=== PATIENT | male | born 1955 | race Caucasian/White ===

== ENCOUNTER 2018-10-21 17:33 | Observation (INO) ==
--- NOTE | 2018-10-21 18:06 | PROVIDER DOCUMENTATION ---
HPI-General Adult - General Chief Complaint: Edema Stated Complaint: FACE SWELLING / FEELS DIZZY Time Seen by Provider: 10/21/18 17:52 Source: patient Allergies/Adverse Reactions: Patient Allergies Allergy/AdvReac Type Severity Reaction Status Date / Time Penicillins AdvReac Unknown Verified 10/21/18 18:04 Home Medications: Home Medication List Medication Instructions Recorded Confirmed Last Taken Type Albuterol Sulfate [Proair Hfa] 8.5 gm IH PRN PRN 01/08/18 10/21/18 01/11/18 06:00 History Amlodipine Besylate/Benazepril 1 each PO DAILY 01/08/18 10/21/18 01/10/18 08:00 History [Lotrel 10/20 mg Capsule] Baclofen 10 mg PO TID 01/08/18 10/21/18 01/11/18 06:00 History Escitalopram Oxalate [Lexapro] 10 mg PO DAILY 01/08/18 10/21/18 01/11/18 06:00 History Meloxicam 15 mg PO DAILY 01/08/18 10/21/18 01/07/18 History Metformin [Glucophage] 2 tab PO BID 01/08/18 10/21/18 01/10/18 19:00 History Morphine Sulfate [Morphine Sulfate 15 mg PO TID 01/08/18 10/21/18 01/11/18 06:00 History ER] Pioglitazone HCl [Actos] 15 mg PO DAILY 01/08/18 10/21/18 01/11/18 06:00 History Ropinirole HCl [Requip] 5 mg PO DAILY 01/08/18 10/21/18 01/10/18 22:00 History Zolpidem Tartrate [Ambien] 10 mg PO QHS 01/08/18 10/21/18 01/10/18 22:00 History - History of Present Illness -Gen Adult Nature of Presenting Problems: Patient is a 63 year old white male with history of diabetes, HTN,and chronic pain (seen at local pain clinic, takes morphine three times a day) who presents for followup of lip swelling after taking CALEB inhibitor this am. Initially seen by Urgent Care Clinic and given benadryl and Steroid shot. Patient is currently oriented to person,place, and time. Denies chest pain,new weakness,fever, new numbness, headache, or sob. Family report that patient has not been acting himeself. Location of Pain/Injury: reports: other (chronic back pain) Onset/Duration: reports: gradual, this morning Timing: reports: improving Associated Symptoms: denies: chest pain, fever/chills, shortness of breath Recently seen or treated by another doctor?: Yes (pain clinic, urgent care clinic) Review of Systems - Adult - REVIEW OF SYSTEMS - ADULT Constitutional: denies: chills, fever Eyes: reports: no symptoms reported Ears, Nose, Mouth & Throat: reports: see HPI, other (lip swelling). denies: throat swelling Respiratory: denies: cough, shortness of breath Gastrointestinal: denies: abdominal pain, nausea, vomiting Musculoskeletal: reports: no symptoms reported Integumentary: reports: see HPI Neurological: denies: dizziness/vertigo Psychiatric: denies: no symptoms reported Endocrine: reports: no symptoms reported Hematologic/Lymphatic: reports: no symptoms reported Allergic/Immunologic: reports: see HPI All Other Systems: Reviewed and Negative Past History - Adult - PAST MEDICAL HISTORY-ADULT Review of Records: reports: Old Records Reviewed, Nursing Assessment Review, Medications Reviewed, Social history reviewed & non-contributory. Major Childhood Illnesses: reports: denies history Cardiovascular: reports: HTN, hyperlipidemia Respiratory: reports: denies history Gastrointestinal: reports: denies history Obstetrical/Gynecological: reports: denies history Genitourinary: reports: denies history Musculoskeletal: reports: denies history Neurological: reports: denies history Endocrine/Immune: reports: denies history Diabetes Type: Type 2 Diabetes controlled by:: PO Meds Other Conditions: reports: denies history - IMMUNIZATION STATUS Childhood Immunizations: See Nurse Assessment Flu Vaccine: See Nurse Assessment - FAMILY HISTORY Family History: reviewed, not pertinent - SOCIAL HISTORY Substance Use: denies Alcohol Use Frequency: occasionally Physical Exam-General - PHYSICAL EXAM-ADULT Initial Vital Signs Reviewed: Yes - CONSTITUTIONAL General Appearance: alert, no apparent distress, other (oriented to time,place, and person, NIH score=0) - EYES Eyes: PERRL/EOMI - HEAD, EARS, NOSE, MOUTH & THROAT HENMT: normocephalic/atraumatic, moist mucous membranes, other (mild lip swelling) - NECK Neck: non-tender, full range of motion, supple - RESPIRATORY Respiratory: lungs clear, no pleuratic chest pain - CARDIOVASCULAR Cardiovascular: regular rate, rhythm - GASTROINTESTINAL (ABDOMEN) Abdominal Exam: normal bowel sounds, non tender, soft - LYMPHATIC Lymphatic: no adenopathy - MUSCULOSKELETAL Back Exam: normal inspection, no CVA tenderness Extremity: normal range of motion, non-tender Peripheral Pulses: radial (R): 2+, radial (L): 2+ - SKIN Integumentary: normal color, normal turgor, warm/dry - NEUROLOGIC Neurologic: 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 Martinez, hospitalist Time Discussed: 19:50 Consult Disposition: Admit Departure - Departure Date of Disposition Decision: 10/21/18 Time of Disposition Decision: 19:53 DIAGNOSIS: LARS (acute kidney injury) Adverse drug reaction Qualifiers: Encounter type: initial encounter Qualified Code(s): T50.905A - Adverse effect of unspecified drugs, medicaments and biological substances, initial encounter Angioedema Qualifiers: Encounter type: initial encounter Qualified Code(s): T78.3XXA - Angioneurotic edema, initial encounter Disposition: ADMITTED INPATIENT 09 Certified Medical Emergency: Emergent Condition: Stable Referrals and Follow-Ups: Juvencio Trejo MD [Primary Care Provider] - - Critical Care Note This patient required my direct & personal management of CC.: No Attestation - Physician/ KEANU Attestation Patient care was provided by Advanced Practice Provider:: No The physician spent face to face time with patient:: Yes Advanced Practice Provider documentation review:: Supervising physician onsite and consulted in the evaluation and care of this patient. The physician did have a face to face encounter with the patient.
[2018-10-21 18:39] LABS: BASO# 0.01 X1000 (0.0-0.2); BASO% 0.1 % (0.0-0.8); HEMATOCRIT 35.6 % (42.0-52.0); HEMOGLOBIN 11.7 g/dL (14.0-18.0); IMM GRAN# 0.03 X1000 (0.0-0.04); IMM GRAN% 0.3 % (0.0-0.5); LYMPH# 0.32 X1000 (1.2-3.4); LYMPH% 2.9 % (20.5-51.1); MCHC 32.9 g/dL (33-37); MCV 97.3 FL (81-99); MONO# 0.15 X1000 (0.11-0.59); MONO% 1.4 % (1.7-9.3); MPV 10.6 FL (7.4-10.4); NEUT# 10.55 X1000 (1.4-6.5); NEUT% 95.3 % (42.2-75.2); PLT 322 X1000 (130-400); RBC 3.66 XMIL (4.7-6.1); WBC 11.06 X1000 (4.8-10.8)
[2018-10-21 19:16] LABS: BILIRUBIN URINE NEGATIVE (NEGATIVE); BLOOD URINE NEGATIVE (NEGATIVE); GLUCOSE URINE NEGATIVE (NEGATIVE); KETONE URINE TRACE mg/dL (NEGATIVE); LEUKOCYTES URINE NEGATIVE (NEGATIVE); NITRITE URINE NEGATIVE (NEGATIVE); PROTEIN URINE NEGATIVE (NEGATIVE); UROBILINOGEN URINE NORMAL
[2018-10-21 19:16] LABS: ALBUMIN 4.4 g/dL (3.5-5.0); CALCIUM 8.9 mg/dL (8.8-10.2); CREATININE 3.6 mg/dL (0.7-1.2); POTASSIUM 5.4 mmol/L (3.5-5.1); TOTAL BILIRUBIN 0.4 mg/dL (0.20-1.00); TOTAL PROTEIN 6.4 g/dL (6.3-8.3)
[2018-10-21 19:17] LABS: CLARITY CLEAR (CLEAR); COLOR YELLOW
[2018-10-21 19:19] LABS: URINE SOURCE CLEAN CATCH
[2018-10-21 19:20] LABS: URINE BACTERIA 1+ /HFP; URINE CAST NONE SEEN /LPF; URINE CRYSTAL NONE SEEN /HPF; URINE EPITHELIAL CELLS <10 /HPF (<10); URINE RBC <10 /HPF (<10); URINE WBC <10 /HPF (<10); URINE YEAST NONE SEEN /HPF
[2018-10-21 19:21] LABS: UR AMPHETAMINES QUAL NONE DETECTED (NONE DETECT); UR BARBITUATES QUAL NONE DETECTED (NONE DETECT); UR BENZODIAZEPIN QUAL PRESUMPTIVE POSITIVE (NONE DETECT); UR CANNABINOIDS QUAL NONE DETECTED (NONE DETECT); UR COCAINE QUAL NONE DETECTED (NONE DETECT); UR METHADONE QUAL NONE DETECTED (NONE DETECT); UR METHAMPHETAMINE QUAL NONE DETECTED (NONE DETECT); UR OPIATES QUAL PRESUMPTIVE POSITIVE (NONE DETECT); UR OXYCODONE QUAL NONE DETECTED (NONE DETECT); UR PCP QUAL NONE DETECTED (NONE DETECT); UR PROPOXYPHENE QUAL NONE DETECTED (NONE DETECT); UR TCA QUAL PRESUMPTIVE POSITIVE (NONE DETECT)
[2018-10-21] MEDS ORDERED: NS 1,000 ML IV ONE ×2 (19:49→19:57)
[2018-10-21] MEDS ORDERED: BENADRYL PO PRN (20:04)
[2018-10-21] MEDS: HUMULIN R (PARKWAY) SUBQ SCH (23:17)
--- NOTE | 2018-10-21 23:36 | EKG Report ---
Test Performed on : 10/21/2018 10:46:31 PM Test Reason : pain Blood Pressure : / mmHG Vent. Rate : 074 BPM Atrial Rate : 074 BPM P-R Int : 190 ms QRS Dur : 106 ms QT Int : 416 ms P-R-T Axes : 035 021 004 degrees QTc Int : 461 ms Normal sinus rhythm. Possible Inferior infarct , age undetermined Abnormal ECG When compared with ECG of 08-JAN-2018 10:42, Borderline criteria for Inferior infarct are now present Unconfirmed Result
[2018-10-22] MEDS: TYLENOL PO PRN (00:31)
[2018-10-22 06:44] LABS: HEMATOCRIT 35.5 % (42.0-52.0); HEMOGLOBIN 11.4 g/dL (14.0-18.0); MCH 31.1 PG (27-31); MCHC 32.1 g/dL (33-37); MPV 10.9 FL (7.4-10.4); RBC 3.66 XMIL (4.7-6.1); RDW 13.8 % (11.5-14.5); WBC 9.05 X1000 (4.8-10.8)
[2018-10-22 07:27] LABS: ALBUMIN 3.8 g/dL (3.5-5.0); CALCIUM 8.3 mg/dL (8.8-10.2); CREATININE 2.9 mg/dL (0.7-1.2); MAGNESIUM 1.7 mg/dL (1.5-2.7); POTASSIUM 5.3 mmol/L (3.5-5.1); TOTAL BILIRUBIN 0.3 mg/dL (0.20-1.00); TOTAL PROTEIN 6.3 g/dL (6.3-8.3)
[2018-10-22] MEDS ORDERED: VENTOLIN HFA INH PRN (08:08)
[2018-10-22] MEDS ORDERED: ROPINIROLE HCL 5 MG PO SCH (09:00)
[2018-10-22] MEDS: PROTONIX PO SCH (09:31)
[2018-10-22] MEDS: HUMULIN R (PARKWAY) SUBQ SCH ×4 (09:44→21:28)
[2018-10-22] MEDS: LIORESAL PO SCH ×3 (09:56→21:28)
[2018-10-22] MEDS: LEXAPRO PO SCH (09:56)
[2018-10-22] MEDS: NS 1,000 ML IV SCH ×2 (09:57→17:47)
--- NOTE | 2018-10-22 10:16 | HISTORY AND PHYSICAL ---
PRIMARY CARE PHYSICIAN: Dr. Trejo. CHIEF COMPLAINT: Had lip swelling after he took an CALEB inhibitor yesterday morning but was initially seen at an urgent care center, was given Benadryl and a steroid shot and was presenting to the ER for follow up from that. HISTORY OF PRESENTING ILLNESS: This is a 63-year-old male who presents to [facility] ER for follow-up after he had lip swelling after taking an CALEB inhibitor yesterday morning. He initially went to an urgent care center and was given Benadryl and a steroid shot and then came to be further evaluated as he had not been feeling well since then. His lip swelling had greatly improved. His laboratory data though showed a sodium of 133, potassium of 5.4, a BUN of 61 with a creatinine of 3.6, in a patient who had no known kidney problems so he was admitted for further evaluation and treatment. PAST MEDICAL HISTORY: Diabetes type 2, hypertension, chronic pain, and hyperlipidemia. PAST SURGICAL HISTORY: Of a tonsillectomy, neck surgery, hemorrhoidectomy and a right shoulder surgery. FAMILY HISTORY: Reviewed and noncontributory. SOCIAL HISTORY: Currently lives alone. Denied any tobacco. Uses alcohol occasionally and denied any illicit drug use. ALLERGIES: Penicillin. HOME MEDICATIONS: We will hold the following: Lotrel 10/20 one p.o. daily, meloxicam 15 mg p.o. daily, Glucophage 500 mg 2 tablets p.o. b.i.d., and Actos 15 mg p.o. daily. We will continue his ProAir 8.5 gram inhalation p.r.n., baclofen 10 mg p.o. t.i.d., Lexapro 10 mg p.o. daily, morphine ER 15 mg p.o. t.i.d., Requip 5 mg p.o. daily, and Ambien 10 mg p.o. at bedtime. LABORATORY DATA: Showed a white blood cell count of 11.06, hemoglobin 11.7, hematocrit 35.6, platelets 322,000. Sodium 133, potassium 5.4, chloride 95, CO2 17, BUN of 61 with a creatinine of 3.6, glucose 204. Repeat labs this morning showed a BUN of 58, creatinine 2.9, sodium up to 134, potassium was at 5.3. Urinalysis was negative. Urine drug screen was presumptive positive for opiates, tricyclics and benzodiazepines. EKG showed normal sinus rhythm at 74. REVIEW OF SYSTEMS: He denied any fever, chills, blurred vision, dizziness. He did have swelling to both lips after taking his CALEB inhibitor, but was much improved on arrival and has returned to normal at time of this assessment. PHYSICAL EXAMINATION: HEENT: Oropharynx and nares are clear. EYES: Pupils are equal, round, reactive to light and accommodation. Extraocular movements are intact. NECK: Normal inspection, normal range of motion. LUNGS: Clear to auscultation bilaterally with equal lung expansion and chest wall movement. HEART: With regular rate and rhythm. No murmurs, rubs, or gallops. ABDOMEN: Soft, nontender, nondistended. Bowel sounds are present x4 quadrants. MUSCULOSKELETAL: He has 5/5 strength x4 extremities. NEUROLOGICAL: The cranial nerves 2-12 appear grossly intact. ASSESSMENT: 1. Angioedema secondary to CALEB inhibitor use, resolved. 2. Acute kidney injury. 3. Hyponatremia. 4. Diabetes type 2. PLAN: 1. He was admitted to the medical unit. Placed on a diabetic diet, normal saline at 125 mL an hour. 2. He has Benadryl 50 mg p.o. q.6 hours p.r.n. 3. Some patterned blood sugars with sliding scale insulin, diabetic diet. 4. The swelling in his lips have resolved and returned to normal. 5. We will recheck a CBC and CMP and a magnesium level in the a.m. 6. Further orders after being seen by attending. Dictated by CRISTY Bernal for Rigo Martinez MD cc: CRISTY Bernal MD John V. Irle, MD
[2018-10-22] MEDS: MS CONTIN PO PRN (15:53)
[2018-10-22] MEDS: NON-FORMULARY MED PO SCH (21:28)
[2018-10-22] MEDS: AMBIEN PO SCH (21:28)
[2018-10-22] MEDS ORDERED: AYR NASAL SPRAY NAS PRN (23:59)
[2018-10-23] MEDS: MS CONTIN PO PRN ×2 (00:05→13:52)
[2018-10-23] MEDS: NS 1,000 ML IV SCH ×2 (02:20→16:17)
[2018-10-23] MEDS: PROTONIX PO SCH (06:03)
[2018-10-23 06:35] LABS: HEMATOCRIT 33.6 % (42.0-52.0); HEMOGLOBIN 11.1 g/dL (14.0-18.0); MCH 31.8 PG (27-31); MCV 96.3 FL (81-99); MPV 10.7 FL (7.4-10.4); RBC 3.49 XMIL (4.7-6.1); RDW 14.2 % (11.5-14.5); WBC 8.26 X1000 (4.8-10.8)
[2018-10-23 06:39] LABS: ALBUMIN 3.7 g/dL (3.5-5.0); CALCIUM 8.5 mg/dL (8.8-10.2); CREATININE 1.8 mg/dL (0.7-1.2); MAGNESIUM 1.6 mg/dL (1.5-2.7); POTASSIUM 4.8 mmol/L (3.5-5.1); TOTAL BILIRUBIN 0.2 mg/dL (0.20-1.00); TOTAL PROTEIN 5.7 g/dL (6.3-8.3)
--- NOTE | 2018-10-23 06:47 | HISTORY AND PHYSICAL ---
ADDENDUM: The patient is a 63-year-old male who presented to the hospital with facial swelling and dizziness. He does have a history of diabetes and hypertension. The patient was started on an CALEB inhibitor recently but had stopped that. However, he has continued to feel bad and therefore presented to the hospital. Upon evaluation in the ER, his facial swelling is much improved from what he has had in the past. However, his potassium is 5.4 and creatinine is 3.6. We are going to admit him. Obviously, he has already stopped his CALEB inhibitor. We will stop any other nephrotoxic drugs. We will place him on IV fluids and re-evaluate. cc: Rigo Martinez MD
[2018-10-23] MEDS: HUMULIN R (PARKWAY) SUBQ SCH ×4 (09:46→23:33)
[2018-10-23] MEDS: LIORESAL PO SCH ×3 (09:47→23:34)
[2018-10-23] MEDS: LEXAPRO PO SCH (09:47)
[2018-10-23] MEDS: TYLENOL PO PRN (09:48)
[2018-10-23] MEDS ORDERED: VASELINE TOP ONE (17:59)
--- NOTE | 2018-10-23 18:16 | PROGRESS NOTE ---
DATE: 10/23/2018 SUBJECTIVE: Patient looks well. No major complaints. He is really wanting to go home, but he seems better. Family expresses concern about other issues. OBJECTIVE: Vital Signs: Blood pressure is 171/82, heart rate of 58, respiratory rate of 18, temperature was 97.9 degrees. Cardiovascular: Regular rate and rhythm. Pulmonary: Bilateral breath sounds, clear to auscultation. Gastrointestinal: Soft, nontender, nondistended. Bowel sounds are positive. DIAGNOSTIC DATA: White count 8, hemoglobin and hematocrit of 11 and 33, platelets 314,000. BUN and creatinine are 44 and 1.8. PROBLEM LIST: 1. Acute kidney injury that is improved. We will continue IV fluids and follow. Anticipate discharge tomorrow. 2. Angioedema that is resolved. He will have to permanently have allergies to ACEs and ARBs. 3. Type 2 diabetes is not well controlled. We will have to adjust his medications accordingly. He will need to avoid meloxicam. He cannot take metformin currently. Actos is probably a bit concerning, so we will continue to follow. DISPOSITION: Anticipate discharge soon, probably tomorrow. He reports that CALEB inhibitor has been used in outpatient in an escalating fashion, which may have engendered this. Of course, there is a rare chance he may have bilateral renal artery stenosis, so we are going to get renal artery Doppler studies tomorrow to evaluate his kidneys and anticipate discharge tomorrow if stable. cc: Steve Curtis MD
[2018-10-23] MEDS: AMBIEN PO SCH (23:34)
[2018-10-23] MEDS: NON-FORMULARY MED PO SCH (23:35)
[2018-10-24] MEDS: NS 1,000 ML IV SCH ×2 (03:45→09:27)
[2018-10-24] MEDS: MS CONTIN PO PRN (03:51)
[2018-10-24] MEDS: TYLENOL PO PRN (06:03)
[2018-10-24] MEDS: PROTONIX PO SCH (06:04)
[2018-10-24] MEDS: HUMULIN R (PARKWAY) SUBQ SCH ×2 (06:56→12:41)
[2018-10-24 07:40] VITALS: BP 173/85
[2018-10-24 07:42] LABS: BASO# 0.02 X1000 (0.0-0.2); BASO% 0.3 % (0.0-0.8); EOS# 0.45 X1000 (0.0-0.7); EOS% 6.8 % (0.0-10.0); HEMATOCRIT 33.6 % (42.0-52.0); HEMOGLOBIN 10.9 g/dL (14.0-18.0); IMM GRAN# 0.02 X1000 (0.0-0.04); IMM GRAN% 0.3 % (0.0-0.5); LYMPH# 1.46 X1000 (1.2-3.4); LYMPH% 21.9 % (20.5-51.1); MCH 31.5 PG (27-31); MCHC 32.4 g/dL (33-37); MCV 97.1 FL (81-99); MONO# 0.68 X1000 (0.11-0.59); MONO% 10.2 % (1.7-9.3); MPV 11.3 FL (7.4-10.4); NEUT# 4.03 X1000 (1.4-6.5); NEUT% 60.5 % (42.2-75.2); PLT 307 X1000 (130-400); RBC 3.46 XMIL (4.7-6.1); RDW 14.2 % (11.5-14.5); WBC 6.66 X1000 (4.8-10.8)
[2018-10-24 07:51] LABS: CALCIUM 8.7 mg/dL (8.8-10.2); CREATININE 1.5 mg/dL (0.7-1.2); POTASSIUM 4.7 mmol/L (3.5-5.1)
[2018-10-24] MEDS: LEXAPRO PO SCH (09:27)
[2018-10-24] MEDS: LIORESAL PO SCH (09:27)
--- NOTE | 2018-10-24 11:25 | Diag Imaging Result Doc PS360 ---
EXAM: US DUPLEX RENAL ARTY/VEIN LMTD INDICATION: r/o renal artery stenosis TECHNIQUE: COMPARISON: None. FINDINGS: The peak systolic velocity measures 40 cm/s at the aorta and 50 cm/s just proximal to the renal arteries. Right: The peak systolic velocity measures 40 and 25 cm/s at the mid and distal right renal artery. Peak systolic velocity measures 20, 19, and 26 cm/s at the upper, mid, and lower segmental arteries. The right renal artery ratio is 0.8. The resistive index is 0.69. There are a couple of simple cysts associated with the right kidney with the largest measuring up to 4.4 cm. Right kidney measures 10.5 cm in the greatest longitudinal axis and the renal cortex measures 1.3 cm in thickness. Left: The peak systolic velocity measures 52 and 48 cm/s at the mid and distal left renal artery. The peak systolic velocity measures 15, 11, and 12 cm/s at the upper, mid, and lower segmental arteries, respectively. Left renal artery ratio is 1.0. The resistive index is 0.53. The left kidney measures 11.1 cm in the greatest longitudinal axis and the left renal cortex measures 1.1 cm in thickness. IMPRESSION: No evidence of hemodynamically significant renal artery stenosis based on Doppler. Electronically signed by Juvencio Wu 10/24/2018 11:22 AM
--- NOTE | 2018-10-25 06:10 | DISCHARGE SUMMARY ---
ADMISSION DATE: 10/21/2018 DISCHARGE DATE: 10/24/2018 DISCHARGE DIAGNOSES: 1. Acute kidney injury. 2. Angioedema. HISTORY: The patient is doing well. No major complaints. His creatinine has come down to 1.5. He is doing well. I am still waiting on his renal ultrasound just to see if there is any significant blockages. In any case, patient is stable. We discussed at length about blood pressure control and compliance. Right now, we can never use [place]'s. I would say also arbs because of his angioedema. Right now, he has got acute kidney injury still so we need to avoid that as well. We will discharge him on Januvia instead of metformin and add hydralazine to his Norvasc and follow. He will need follow-up BMP in 1 week [address] his PCP Dr. Trejo. Stay hydrated. Avoid NSAIDs. Rest of his medication list is stabilized. TIME SPENT: 32 minute discharge. Seen in conjunction with CRISTY Bernal. cc: Steve Curtis MD
--- NOTE | 2018-10-25 10:11 | DISCHARGE SUMMARY ---
ADMISSION DATE: 10/21/2018 DISCHARGE DATE: 10/24/2018 PRIMARY CARE PHYSICIAN: Dr. Juvencio Trejo. ADMISSION DIAGNOSES: 1. Angioedema secondary to an CALEB inhibitor use, resolved. 2. Acute kidney injury. 3. Hyponatremia. 4. Diabetes type 2. DISCHARGE DIAGNOSES: 1. Acute kidney injury. Kidney function has improved, has gone from 3.6 on admission down to 1.5 now. 2. Angioedema secondary to an CALEB inhibitor use, resolved. 3. Diabetes type 2, not well controlled. SUMMARY OF FINDINGS: This is a 63-year-old male who presented to the ER after he was following up after having lip swelling from taking an CALEB inhibitor on the morning prior. He had initially gone to an urgent care center and given Benadryl and a steroid shot. That was improving, but he came because he was not feeling well. Laboratory data showed a BUN of 61 with a creatinine of 3.6 and a patient with no known kidney problems so he was admitted, hydrated, that has improved. We did an aorta renal ultrasound that showed no evidence of hemodynamically significant renal artery stenosis and it is now felt that he could safely be discharged home. DISCHARGE MEDICATIONS: 1. ProAir inhaler p.r.n. 2. Norvasc 10 mg p.o. daily. 3. Baclofen 10 mg p.o. t.i.d. 4. Lexapro 10 mg p.o. daily. 5. Apresoline 25 mg p.o. t.i.d. 6. Morphine ER 15 mg p.o. t.i.d. 7. Lyrica 75 mg p.o. t.i.d. 8. Requip 5 mg p.o. daily. 9. Januvia 50 mg p.o. daily. 10. Ambien 10 mg p.o. at bedtime. FOLLOWUP: He needs to follow up with his primary care physician in the next 1 to 2 weeks and call the office for an appointment. TIME SPENT WITH PATIENT: This a 35 minute discharge. Dictated by CRSITY Bernal for Steve Curtis MD cc: CRISTY Bernal MD John V. Irle, MD
== END 2018-10-24 12:45 | disposition home or self-care (01) ==
LOC: P.ED 17:33 → P.EDIPHOLD 17:33 → SUATTDRO 20:55 → P.MEDSURG 23:05
PROVIDERS: ATTEND Internal Medicine